=== PATIENT | female | born 1990 | race Hispanic/Latino ===

== ENCOUNTER 2023-05-29 18:18 | Emergency (ER) | payer SELFPAY ==
[~2023-05-29] VITALS: Ht 167.6 cm; Wt 63.5 kg
[2023-05-29] MEDS ORDERED: ONDANSETRON HCL INJ 2MG/ML 2ML 2 MG/ML VIAL ONE (18:36)
[2023-05-29] MEDS ORDERED: SODIUM CHLORIDE 0.9% 1000ML 1,000 ML ONE ×2 (18:36→21:19)
[2023-05-29] MEDS: ONDANSETRON HCL INJ 2MG/ML 2ML 2 MG/ML VIAL IV STA (18:37)
[2023-05-29] MEDS: SODIUM CHLORIDE 0.9% 1000ML 1,000 ML IV ONE ×2 (18:37→21:28)
[2023-05-29] MEDS: FAMOTIDINE 20 MG/2 ML VIAL IV STA (18:38)
[2023-05-29] MEDS ORDERED: IOPAMIDOL 370 MG/ML 100 ML INFUS..BTL INJ ONE (19:29)
[2023-05-29] MEDS ORDERED: CEFTRIAXONE 1 GM VIAL ONE (21:19)
[2023-05-29] MEDS ORDERED: VISTARIL25 MG PO (22:14)
[2023-05-29] MEDS ORDERED: CEPHALEXIN500 MG PO (22:15)
[2023-05-29] MEDS ORDERED: PYRIDIUM100 MG PO (22:16)
[2023-05-29] MEDS ORDERED: ACETAMINOPHEN 325 MG TAB ONE (22:29)
[2023-05-29 23:22] VITALS: BP 157/99; PULSE 96; RESP 18; TEMP 98.2; O2SAT 100
[2023-05-30] MEDS: ACETAMINOPHEN 325 MG TAB PO ONE (02:08)
== END 2023-05-29 23:22 | disposition home or self-care (01) ==
LOC: FSED 18:22
DX: R00.2 Palpitations (principal); R07.9 Chest pain, unspecified; R11.2 Nausea with vomiting, unspecified; E86.0 Dehydration; N39.0 Urinary tract infection, site not specified; F41.9 Anxiety disorder, unspecified
CPT/HCPCS: 36415; 71045; 74177; 76705; 80053; 80307; 81003; 81025; 83690; 84484; 85025; 99283; J0696; J2405; J7030; Q9967; 93005

== ENCOUNTER 2024-01-19 12:31 | Emergency (ER) | payer SELFPAY ==
[~2024-01-19] VITALS: Ht 170.2 cm; Wt 72.6 kg
[~2024-01-19 12:31] MED LIST: CEPHALEXIN500 MG PO; PYRIDIUM100 MG PO; VISTARIL25 MG PO
[2024-01-19 12:34] VITALS: TEMP 97.6
[2024-01-19] MEDS: ONDANSETRON HCL INJ 2MG/ML 2ML 2 MG/ML VIAL IV STA (13:37)
[2024-01-19] MEDS: SODIUM CHLORIDE 0.9% 1000ML 1,000 ML IV ONE ×2 (13:38→14:47)
[2024-01-19 14:58] VITALS: PULSE 99; RESP 18; O2SAT 98
== END 2024-01-19 15:35 | disposition home or self-care (01) ==
LOC: FSED 12:42
DX: O21.1 Hyperemesis gravidarum with metabolic disturbance (principal); F41.9 Anxiety disorder, unspecified; Z11.52 Encounter for screening for COVID-19; R94.31 Abnormal electrocardiogram [ECG] [EKG]
CPT/HCPCS: 0223U; 70450; 71045; 80053; 81003; 81025; 82553; 84484; 85025; 87400; 93005; 99284; J2405; J7030